=== PATIENT | male | born 1965 | race Caucasian/White ===

== ENCOUNTER 2021-02-09 13:04 | Emergency (ER) | payer OTHER ==
--- NOTE | 2021-02-09 16:25 | XR ---
EXAMINATION TYPE: XR chest 2V DATE OF EXAM: 02/09/2021 COMPARISON: None HISTORY: 55-year-old male cough, fever, phlegm TECHNIQUE: PA and lateral views FINDINGS: Heart normal size. Aorta and pulmonary vasculature within normal limits. Mild interstitial prominence . No consolidation or pleural effusion. Hyperinflation with increased retrosternal clear space. IMPRESSION: Possible underlying COPD. Interstitial prominence could reflect bronchitis or asthma. No focal infilt rate seen.
--- NOTE | 2021-02-09 17:39 | ED ---
URI HPI - General Chief Complaint: Upper Respiratory Infection Stated Complaint: covid+ Time Seen by Provider: 02/09/21 17:30 Source: patient Mode of arrival: ambulatory Limitations: no limitations - History of Present Illness Initial Comments: 55 year-old male patient presents to the emergency department with reports of upper respiratory congestion, cough, and fever. States symptoms started two days ago. He did test positive for COVID outpatient. He is requesting to receive the monoclonal antibody infusion. He denies taking any medication for his symptoms. States he has body aches and feels weak. Denies any shortness of breath or chest pain. Denies nausea or vomiting. State he did have one episode of diarrhea. He denies any chronic medical conditions or use of medications. - Related Data Previous Rx's Medication Instructions Recorded Azithromycin [Zithromax Z-pack (6 0 mg PO DIRECTED #6 tab 02/09/21 tabs)] Budesonide [Pulmicort Flexhaler] 2 puff INHALATION BID #1 each 02/09/21 Dexamethasone 6 mg PO DAILY #10 tablet 02/09/21 Ondansetron [Zofran ODT] 4 mg PO Q8HR PRN #10 tab 02/09/21 guaiFENesin-DM 600/30MG [Mucinex 2 each PO Q12HR PRN #20 tab 02/09/21 Dm] Allergies Allergy/AdvReac Type Severity Reaction Status Date / Time No Known Allergies Allergy Verified 02/09/21 15:49 Review of Systems ROS Statement: Those systems with pertinent positive or pertinent negative responses have been documented in the HPI. ROS Other: All systems not noted in ROS Statement are negative. Past Medical History History of Any Multi-Drug Resistant Organisms: None Reported Past Surgical History: Appendectomy, Cholecystectomy, Orthopedic Surgery Past Psychological History: No Psychological Hx Reported Smoking Status: Never smoker Past Alcohol Use History: Occasional Past Drug Use History: None Reported General Exam Limitations: no limitations General appearance: alert, in no apparent distress, other (Physical well- developed, well-nourished adult male in no acute distress.) ENT exam: Present: normal exam, normal oropharynx, mucous membranes moist Respiratory exam: Present: normal lung sounds bilaterally. Absent: respiratory distress, wheezes, rales, rhonchi, stridor Cardiovascular Exam: Present: regular rate, normal rhythm, normal heart sounds. Absent: systolic murmur, diastolic murmur, rubs, gallop, clicks GI/Abdominal exam: Present: soft, normal bowel sounds. Absent: distended, tenderness, guarding, rebound, rigid Neurological exam: Present: alert, oriented X3, CN II-XII intact Psychiatric exam: Present: normal affect, normal mood Skin exam: Present: warm, dry, intact, normal color. Absent: rash Course Vital Signs 02/09/21 02/09/21 15:44 17:43 Temperature 98.9 F 99.3 F Pulse Rate 66 69 Respiratory 20 18 Rate Blood Pressure 106/66 123/77 O2 Sat by Pulse 97 97 Oximetry Medical Decision Making - Medical Decision Making 55-year-old male patient presented to the emergency department requesting monoclonal antibody infusion after testing positive for COVID-19 at urgent care. Physical examination did reveal clear equal lung sounds. Vital signs are unremarkable. Unfortunately he did not meet criteria to receive antibody infusion. Did discuss this with him. He'll be discharged with multiple prescriptions for symptom control. We did discuss supportive care. He'll be discharged follow-up with the primary care physician for recheck in 1-2 days. Return parameters were discussed in detail. He verbalizes understanding and agrees with this plan. My attending is Dr. Cohn. - Radiology Data Radiology results: report reviewed, image reviewed Two-view x-ray of the chest is obtained. Report was reviewed in its entirety. Impression by Dr. Meyer shows possible underlying COPD. Interstitial prominence could reflect bronchitis or asthma. No focal infiltrate seen. Disposition Clinical Impression: COVID-19 Disposition: HOME SELF-CARE Condition: Good Instructions (If sedation given, give patient instructions): Coronavirus Disease 2019 (COVID-19) Additional Instructions: Tips to help you feel better: -Maintain adequate fluid intake - especially water. -Rest, you are healing your body will require extra sleep. -Eat even if you do not feel like it - broth, jello, toast are fine if you cannot eat full meals. -Take tylenol and motrin alternating (if you have no allergies or have not been instructed to avoid these medications) to help with body aches and fevers. -Obtain over the counter vitamin C, zinc, and vitamin D3. -Take medications as prescribed. Follow-up with your primary care physician for recheck in 1-2 days. Return for any new, worsening, or concerning symptoms. Prescriptions: Dexamethasone 6 mg PO DAILY #10 tablet guaiFENesin-DM 600/30MG [Mucinex Dm] 2 each PO Q12HR PRN #20 tab PRN Reason: Cough Budesonide [Pulmicort Flexhaler] 2 puff INHALATION BID #1 each Azithromycin [Zithromax Z-pack (6 tabs)] 0 mg PO DIRECTED #6 tab Ondansetron [Zofran ODT] 4 mg PO Q8HR PRN #10 tab PRN Reason: Nausea Is patient prescribed a controlled substance at d/c from ED?: No Referrals: None,Stated [Primary Care Provider] - 1-2 days Time of Disposition: 17:38
[2021-02-09 18:02] VITALS: BP 123/77; PULSE 69; RESP 18; TEMP 99.3
== END 2021-02-09 17:43 | disposition home or self-care (01) ==
LOC: EC 13:04
DX: U07.1 COVID-19 (principal); Z90.49 Acquired absence of other specified parts of digestive tract
CPT/HCPCS: 71046; 99284

== ENCOUNTER → 2022-11-20 | Outpatient (CLI) | payer OTHER ==
--- NOTE | 2022-11-21 09:11 | XR ---
EXAMINATION TYPE: XR shoulder complete RT DATE OF EXAM: 11/20/2022 CLINICAL HISTORY: Other distant disorders. Pain after years of heavy lifting. TECHNIQUE: Three views of the right shoulder are obtained. COMPARISON: None. FINDINGS: There is no acute fracture/dislocation evident in the right shoulder. Moderate narrowing w ith mild spurring at the acromioclavicular joint. Mild to moderate narrowing involving the glenohumer al joint. The visualized ribs are intact and unremarkable. IMPRESSION: As above.
--- NOTE | 2022-11-21 11:59 | XR ---
EXAMINATION TYPE: XR lumbosacral spine min 4V DATE OF EXAM: 11/20/2022 CLINICAL HISTORY: Pain TECHNIQUE: Frontal, lateral, and oblique images of the lumbar spine are obtained. COMPARISON: none FINDINGS: There are 5 lumbar type vertebral bodies identified. The lumbar spine shows satisfactory alignment without evidence of acute fracture or dislocation. There is moderate multilevel degenerativ e disc space narrowing and spondylosis. Facet joint arthropathy noted. The oblique images appear with in normal limits. The overlying soft tissue appears unremarkable. IMPRESSION: No acute fracture or dislocation is seen in the lumbar spine.
== END | disposition home or self-care (01) ==
LOC: RADXRMAIN 11:56
PROVIDERS: ATTEND Chiropractor
DX: M51.86 Other intervertebral disc disorders, lumbar region (principal); M99.02 Segmental and somatic dysfunction of thoracic region; M25.711 Osteophyte, right shoulder; M25.552 Pain in left hip
CPT/HCPCS: 72110